=== PATIENT | male | born 1995 | race American Indian/Alaskan Native ===

== ENCOUNTER 2017-03-14 22:30 | Emergency (ER) | payer BC ==
[2017-03-14 22:31] VITALS: BMI 23.5
[2017-03-14 23:57] VITALS: BP 120/73; PULSE 70; RESP 18; TEMP 98.6; O2SAT 100
[2017-03-15] MEDS ORDERED: cefTRIAXone (Rocephin) 250 mg Inj IM STA (00:32)
--- NOTE | 2017-03-15 00:45 | ED PDOC ---
Arrival/HPI <Bernard Davis - Last Filed: 03/15/17 00:59> - General Historian: Patient - History of Present Illness Time/Duration: < week (2 days) Symptom Onset: Sudden Symptom Course: Unchanged Activities at Onset: Light Context: Home <Michele Wong - Last Filed: 03/21/17 22:50> - General Chief Complaint: Male Genitourinary Time Seen by Provider: 03/15/17 00:32 - History of Present Illness Narrative History of Present Illness (Text): 03/15/17 00:30 21 year old male who presents to the Emergency department for penile pain for the past 2 days. Patient states he accidentally hit a box against his penis 2 days prior at work. Patient denies any testicular pain, fever, chills, pelvic pain, groin pain, abdominal pain, nausea, vomiting, or any other complaints. (Michele Wong) Past Medical History - Provider Review Nursing Documentation Reviewed: Yes - Past History Past History: No Previous - Cardiac Hx Cardiac Disorders: No - Pulmonary Hx Respiratory Disorders: No - Neurological Hx Neurological Disorder: No - HEENT Hx HEENT Disorder: No - Renal Hx Renal Disorder: No - Endocrine/Metabolic Hx Endocrine Disorders: No - Hematological/Oncological Hx Blood Disorders: No - Integumentary Hx Dermatological Disorder: No - Musculoskeletal/Rheumatological Hx Musculoskeletal Disorders: No - Gastrointestinal Hx Gastroesophageal Reflux: Yes - Genitourinary/Gynecological Hx Genitourinary Disorders: No - Psychiatric Hx Anxiety: Yes Hx Depression: No Hx Emotional Abuse: No Hx Physical Abuse: No Hx Substance Use: No - Past Surgical History Past Surgical History: No Previous - Suicidal Assessment Feels Threatened In Home Enviroment: No <Michele Wong - Last Filed: 03/21/17 22:50> Family/Social History - Physician Review Nursing Documentation Reviewed: Yes Family/Social History: Unknown Family HX Smoking Status: Never Smoked Hx Alcohol Use: No Hx Substance Use: No Hx Substance Use Treatment: No <Michele Wong - Last Filed: 03/21/17 22:50> Allergies/Home Meds <Bernard Davis - Last Filed: 03/15/17 00:59> <Michele Wong - Last Filed: 03/21/17 22:50> Allergies/Adverse Reactions: Allergies No Known Allergies Allergy (Verified 03/14/17 23:52) Review of Systems - Physician Review All systems were reviewed & negative as marked: Yes - Review of Systems Constitutional: Normal. absent: Fevers Eyes: Normal ENT: Normal Respiratory: Normal. absent: SOB, Cough Cardiovascular: Normal. absent: Chest Pain Gastrointestinal: Normal. absent: Abdominal Pain, Diarrhea, Nausea, Vomiting Genitourinary Male: Other (+penile pain). absent: Dysuria, Frequency, Hematuria , Urinary Output Changes Musculoskeletal: Normal. absent: Back Pain, Neck Pain Skin: Normal. absent: Rash Neurological: Normal. absent: Headache, Dizziness Endocrine: Normal Hemo/Lymphatic: Normal Psychiatric: Normal <Michele Wong P - Last Filed: 03/21/17 22:50> Physical Exam Vital Signs Reviewed: Yes Temperature: Afebrile Blood Pressure: Normal Pulse: Regular Respiratory Rate: Normal Appearance: Positive for: Well-Appearing, Non-Toxic, Comfortable Pain Distress: None Mental Status: Positive for: Alert and Oriented X 3 - Systems Exam Head: Present: Atraumatic, Normocephalic Pupils: Present: PERRL Extroacular Muscles: Present: EOMI Conjunctiva: Present: Normal Mouth: Present: Moist Mucous Membranes Neck: Present: Normal Range of Motion Respiratory/Chest: Present: Clear to Auscultation, Good Air Exchange. No: Respiratory Distress, Accessory Muscle Use Cardiovascular: Present: Regular Rate and Rhythm Abdomen: Present: Normal Bowel Sounds. No: Tenderness, Distention, Peritoneal Signs Genitourinary Male: Present: Normal External Genitalia, Circumcised Penis, Penile Discharge (Positive white/yellowish penile discharge). No: Lesions, Testicle Tenderness, Penile Swelling, Erythema, Testicle Swelling, Other (No swelling, erythema, or rash to penis) Upper Extremity: Present: Normal Inspection, Normal ROM, NORMAL PULSES. No: Cyanosis, Edema Lower Extremity: Present: Normal Inspection, NORMAL PULSES, Normal ROM, Neurovascularly Intact, Capillary Refill < 2 s. No: Edema, Tenderness, Swelling Neurological: Present: GCS=15, CN II-XII Intact, Speech Normal, Motor Func Grossly Intact, Normal Sensory Function, Normal Cerebellar Funct, Norm Deep Tendon Reflexes, Gait Normal, Memory Normal Skin: Present: Warm, Dry, Normal Color. No: Rashes Psychiatric: Present: Alert, Oriented x 3, Normal Insight, Normal Concentration <Michele Wong - Last Filed: 03/21/17 22:50> Vital Signs Temp Pulse Resp BP Pulse Ox 03/14/17 23:53 98.6 F 70 18 120/73 100 Medical Decision Making <Bernard Davis - Last Filed: 03/15/17 00:59> Re-evaluation Time: 00:49 Reassessment Condition: Re-examined, Improved <Michele Wong - Last Filed: 03/21/17 22:50> ED Course and Treatment: 03/15/17 00:30 Impression: 21 year old male complaining of penile pain for 2 days. Plan: -- Chlamydia/GC RNA -- Zithromax -- Rocephin -- Reassess and disposition Progress Notes: Re-evaluation. Patient feels better. Discussed results and plan with patient who expresses understanding. All questions answered and there is agreement with the plan to discharge home with instructions. Patient stable for discharge. Return if symptoms persist or worsen. 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 <Bernard Davis - Last Filed: 03/15/17 00:59> Disposition/Present on Arrival <Bernard Davis - Last Filed: 03/15/17 00:59> - Present on Arrival Any Indicators Present on Arrival: No History of DVT/PE: No History of Uncontrolled Diabetes: No Urinary Catheter: No History of Decub. Ulcer: No History Surgical Site Infection Following: None - Disposition Have Diagnosis and Disposition been Completed?: Yes Disposition Time: 00:49 Patient Plan: Discharge <Michele Wong - Last Filed: 03/21/17 22:50> - Disposition Diagnosis: Penile discharge, without blood Disposition: HOME/ ROUTINE Condition: GOOD Discharge Instructions (ExitCare): Nonspecific Urethritis in Men (ED) Additional Instructions: Call private doctor for follow up visit in 1-2 days. Review STD test result with your doctor in 3 days. If positive for STD, have your doctor check you for other illness including HIV. Do not do sexual intercourse till result is available, if positive, do not have sexual intercourse till a repeat STD test is negative. Next STD test needs to be repeated in 4 weeks if 1st is positive for STD. Have partner gets check for STD Referrals: [facility] [Outside] - Follow up with primary [facility] [Outside] - Follow up with primary
[2017-03-15] MEDS ORDERED: Lidocaine 1% Inj (20ml) ONE (01:09)
--- NOTE | 2017-03-21 14:36 | ED PDOC ---
ED Additional Note - Physician Additional Note Physician Additional Note: spoke with patient today regarding + GC cultures. pt was treated in er; i advised f/u with pmd for confirmation of resolution of gC. i advised having sexual partners tested and treated.
== END 2017-03-15 01:23 | disposition home or self-care (01) ==
LOC: ED 22:30
DX: R36.9 Urethral discharge, unspecified (principal)
CPT/HCPCS: 87491; 87591; 96372; 99283; J0696